=== PATIENT | male | born 1965 | race Caucasian/White ===

== ENCOUNTER → 2020-04-17 | Outpatient (CLI) | payer OTHER ==
[~2020-04-17] MED LIST: ALLOPURINOL 30300 M1 PO; AMBIEN CR12.5 MG PO; DESYREL150 MG PO; LORAZEPAM 0.50.5 MG PO; OLMESARTAN MEDO40 MG PO; TESTOSTERO200 MG/1 M IM
== END ==
LOC: LAB 12:32
PROVIDERS: ATTEND Nurse Practitioner
DX: U07.1 COVID-19 (principal)

== ENCOUNTER 2020-04-21 13:37 | Inpatient (IN) | payer OTHER ==
[~2020-04-21] VITALS: Ht 200.7 cm; Wt 178.6 kg
[2020-04-21 13:40] VITALS: BP 136/79
[2020-04-21] MEDS ORDERED: ALLOPURINOL 30300 M1 PO (15:17)
[2020-04-21] MEDS ORDERED: LORAZEPAM 0.50.5 MG PO (15:18)
[2020-04-21] MEDS ORDERED: OLMESARTAN MEDO40 MG PO (15:18)
[2020-04-21] MEDS ORDERED: TESTOSTERO200 MG/1 M IM (15:18)
[2020-04-21 15:36] LABS: ABSOLUTE NEUTROPHILS 13.1 thou/uL (1.4-8.2); BASOPHILS 0.2 % (0.0-2.0); HEMATOCRIT 37.1 % (42.0-52.0); HEMOGLOBIN 12.9 gm/dL (14.0-18.0); LYMPHOCYTES 6.4 % (24.0-44.0); MCH 30.5 pg (26.0-34.0); MCHC 34.7 g/dL (28.0-37.0); MCV 87.9 fL (80.0-100.0); MONOCYTES 6.1 % (1.0-8.0); PLATELET COUNT 196 thou/uL (150-400); POLYS 87.3 % (36.0-66.0); RBC 4.22 mil/uL (4.50-6.00)
[2020-04-21 15:50] LABS: CALCIUM 8.7 mg/dL (8.5-10.1); CREATININE 1.3 mg/dL (0.7-1.3)
[2020-04-21 15:53] LABS: ALBUMIN 3.3 g/dL (3.4-5.0); TOTAL BILIRUBIN 0.6 mg/dL (0.2-1.0); TOTAL PROTEIN 7.3 g/dL (6.4-8.2)
[2020-04-21 18:15] VITALS: BP 132/89
[2020-04-21 18:31] VITALS: BP 139/88
[2020-04-21 18:46] VITALS: BP 153/85
[2020-04-21] MEDS ORDERED: AMBIEN CR12.5 MG PO (22:47)
[2020-04-21] MEDS ORDERED: DESYREL150 MG PO (22:51)
[2020-04-21 23:31] VITALS: BP 173/76
[2020-04-22 03:32] VITALS: BP 175/79
[2020-04-22 04:06] LABS: GLYCOHEMOGLOBIN (HGB A1C) 9.4 % (4.8-5.6)
--- NOTE | 2020-04-22 05:04 | NUR ---
PT ARRIVED VIA WHEELCHAIR. PLACED IN ROOM 356. ADMISSION ASSESSMENTS COMPLETED. PT REPORTS SOA WITH ACTIVITY AND NONPRODUCTIVE COUGH. PT ON O2 AT 4L PER NC. LUNGS DIMINISHED THROUGHOUT. THIS AM PT REPORTING CREAMY WHITE SPUTUM. STATES THAT HE HAS BEEN ABLE TO AMBULATE TO THE TOILET BUT FEES OUT OF BREATH BY THE TIME HE RETURNS TO THE BED AND RESUMES THE OXYGEN. NOTED O2 SAT OF 88-89% ON ROOM, 95% ON 4L.
[2020-04-22 06:55] VITALS: BP 148/90
[2020-04-22 07:58] VITALS: BP 131/83
[2020-04-22] MEDS ORDERED: FREESTYLE LIBR1 EAC2 MISCELL (09:17)
[2020-04-22 12:24] VITALS: BP 147/77
[2020-04-22 16:30] VITALS: BP 140/84
--- NOTE | 2020-04-22 18:19 | NUR ---
RN ASSUMED PT'S CARE AT 0700AM, PT IS A&OX3, PT IS CONTINUING O2 3L/MIN/NC TO KEEP O2SAT >93%, PT HAS SOB WITH ACTIVITIES, PT IS CONTINUING IV ABX , PT GETS UP TO BATHROOM BY HIMSELF, PT DENIES PAIN AT THIS TIME.
[2020-04-22 20:05] VITALS: BP 148/75
[2020-04-23 04:11] VITALS: BP 146/85
[2020-04-23 05:52] LABS: CALCIUM 8.7 mg/dL (8.5-10.1); POTASSIUM 4.1 mmol/L (3.5-5.1)
[2020-04-23 05:56] LABS: HEMATOCRIT 36.5 % (42.0-52.0); HEMOGLOBIN 12.5 gm/dL (14.0-18.0); MCH 30.2 pg (26.0-34.0); MCHC 34.2 g/dL (28.0-37.0); MCV 88.1 fL (80.0-100.0); RBC 4.14 mil/uL (4.50-6.00); WBC 11.6 thou/uL (4.0-11.0)
[2020-04-23 05:57] LABS: ALBUMIN 3.2 g/dL (3.4-5.0); CREATININE 1.1 mg/dL (0.7-1.3); DIRECT BILIRUBIN 0.2 mg/dL (<0.1-0.2); TOTAL BILIRUBIN 0.4 mg/dL (0.2-1.0); TOTAL PROTEIN 6.7 g/dL (6.4-8.2)
[2020-04-23 08:25] VITALS: BP 137/88
--- NOTE | 2020-04-23 10:32 | HC ---
[facility] [place] [address] CONSULTATION Name: MYRIAM REIS [place] Room #: 356-[facility] IN M.R.#: [id number] Admission: 04/21/20 Attend Phys: Alba Ramirez Discharge: Date of : 65 Report #: [id number] THIS REPORT FOR: cc: Tristan Monte James A. DO Barry, Joseph W. MD ~ DATE OF SERVICE: 04/22/2020 INFECTIOUS DISEASE CONSULTATION ATTENDING PHYSICIAN: Dr. lAba Ramirez REASON FOR EVALUATION: COVID complicated by pneumonitis and hypoxemia. HISTORY OF PRESENT ILLNESS: Chart reviewed, patient examined. This is a 54-year-old with known obstructive sleep apnea, who became ill over the last few days. He was confirmed to have COVID positivity middle part of last week, had increasing dyspnea, particularly with activity. He has associated cough and denies systemic illness in terms of fevers or chills. Appetite has been satisfactory. Chest x-ray was done in the Emergency Room, which showed bilateral perihilar infiltrates. CBC showed a white count elevated at 15. Lactic acid is 1.9. Blood cultures are sterile thus far. Due to concern about borderline saturations, he was placed on supplemental oxygen, now requiring 4 liters per nasal cannula. In addition to this was likely new diagnosis of diabetes mellitus. ALLERGIES: None known. MEDICATIONS: Include metformin, glyburide, ceftriaxone, dexamethasone, olmesartan, trazodone, zolpidem, enoxaparin, insulin. PAST MEDICAL HISTORY: As noted above, sleep apnea, hypertension, likely new diagnosis of diabetes mellitus. SOCIAL HISTORY: Nonsmoker, no ethanol, no illicit drug use. FAMILY HISTORY: Noncontributory. REVIEW OF SYSTEMS: Otherwise, unremarkable 10-point review of systems. PHYSICAL EXAMINATION: GENERAL: He is obese. He is alert, cooperative, in [id number] distress secondary to breathing difficulties. He is lucid. VITAL SIGNS: Temperature 97.2, pulse 72, respirations 16, blood pressure [facility] [address] [place] [address] CONSULTATION Name: MYRIAM REIS Room #: [address] [place] [address] [place] M.R.#: [id number] Admission: 04/21/20 Attend Phys: Alba Ramirez Discharge: Date of : 65 Report #: [id number] 131/83. SKIN: Warm, dry, no rashes. HEENT: He has got a thick neck. Nasal cannula in place. NECK: Supple. LUNGS: Diminished breath sounds with crackles at the bases. HEART: Distant, regular. ABDOMEN: Obese, soft, nontender. EXTREMITIES: No cyanosis. GENITOURINARY AND RECTAL: Deferred. LABORATORY DATA: Blood cultures negative thus far. Hemoglobin A1c 9.4. TSH of 1.009. Lactic acid 1.9. Electrolytes: Sodium 135, potassium 4.0, chloride 97, bicarbonate 26, anion gap of 12, BUN and creatinine 26 and 1.3, glucose of 329, albumin 3.3, total protein 7.3, estimated GFR 58. CBC: White count of 15.0, H and H 12.9 and 37.1, platelets of 196. Chest x-ray as noted above. ASSESSMENT: Coronavirus infection, complicated by pneumonitis and respiratory failure. We will initiate therapy with remdesivir as well as the corticosteroids. He is on some empiric antibacterials as well. We will add vitamins. He remains somewhat tenuous, certainly needs diabetes education and management will be difficult to control until he is over his acute illness. We will monitor expectantly. <ELECTRONICALLY SIGNED> By: Drew Street MD 04/23/20 [id number] MD /nt
[2020-04-23 15:17] VITALS: BP 148/92
--- NOTE | 2020-04-23 18:02 | NUR ---
RN SUMMED PT'S CARE AT 0700AM, PT IS CONTINUING IV ABX, PT'S VS ARE STABLE, PT 'S O2 IS ON AND OFF , PT GETS UP TO CHAIR AND BATH ROOM, PT DENIES SOB AND PAIN.
[2020-04-23 19:45] VITALS: BP 155/91
[2020-04-24 02:30] VITALS: BP 152/89
[2020-04-24 06:30] LABS: ALBUMIN 3.1 g/dL (3.4-5.0); CREATININE 0.8 mg/dL (0.7-1.3); DIRECT BILIRUBIN 0.1 mg/dL (<0.1-0.2); TOTAL BILIRUBIN 0.3 mg/dL (0.2-1.0); TOTAL PROTEIN 6.7 g/dL (6.4-8.2)
--- NOTE | 2020-04-24 07:40 | NUR ---
PT UP AD ROXANE AND USES CALL LIGHT WHEN NEEDING HELP. VSS OVERNIGHT. TELE SHOWS SR/SB WITH A BBB. NO FEVER. PT ON CPAP AT HS.
[2020-04-24] MEDS ORDERED: CLARITIN10 M2 PO (08:00)
[2020-04-24 15:45] VITALS: BP 168/87
--- NOTE | 2020-04-24 16:10 | NUR ---
INITIAL ASSESSMENT: SW reviewed chart and spoke with nursing and attending physician. Pt was admitted from home due to pneumonia. Pt placed in Enhanced Isolation due to COVID-19. Pt is afebrile and not requiring O2. Pt is on IV abx and completing course of Remdesivir. SW spoke with pt via phone. Introduced role of SW. Pt is alert/orientated x 4. Pt reports he lives at home with family. Prior to admission, pt was independent with ADLs. Pt does not use any DME for ambulation. Pt has a cpap machine. No hx of services or post-acute placement. Pt's PCP is Dr. Monte. Pt's plan is to discharge home when medically stable. Pt's family to provide transportation home. SW is following to assist as needed with discharge planning.
[2020-04-24 20:18] VITALS: BP 154/85
[2020-04-25 05:44] LABS: ALBUMIN 3.3 g/dL (3.4-5.0); CREATININE 0.9 mg/dL (0.7-1.3); DIRECT BILIRUBIN 0.1 mg/dL (<0.1-0.2); TOTAL BILIRUBIN 0.5 mg/dL (0.2-1.0); TOTAL PROTEIN 6.5 g/dL (6.4-8.2)
[2020-04-25 06:05] VITALS: BP 139/89
--- NOTE | 2020-04-25 07:51 | NUR ---
ASSUMED CARE AT 1900, ASSESSMENT COMPLETED. PT DENIED PAIN OR NAUSEA, REPORTS MILD SOB W/EXERTION, ALSO C/O NO SENSE OF TASTE. HAS BEEN SR ON TELE. LUNGS COARSE BUT MOVING AIR WELL. GAVE ATIVAN AND AMBIEN AT HS, PT DECLINED TAKING TRAZADONE. NO OTHER CONCERNS, SHIFT REPORT GIVEN 0700.
[2020-04-25 07:52] VITALS: BP 139/80
[2020-04-25] MEDS ORDERED: CEFDINIR300 MG PO (09:02)
[2020-04-25] MEDS ORDERED: PREDNISONE 20 M20 M1 PO (09:03)
[2020-04-25] MEDS ORDERED: GLUCOPHAGE1000 MG PO (09:03)
[2020-04-25] MEDS ORDERED: GLYBURIDE 5 MG T5 M1 PO (09:04)
[2020-04-25 11:10] VITALS: BP 139/80
[2020-04-25 12:41] VITALS: BP 139/80
--- NOTE | 2020-04-25 15:39 | NUR ---
DISCHARGE NOTE: SW reviewed chart and spoke with nursing. Pt remains in Enhanced Isolation due to COVID-19. Pt is medically stable for discharge home per attending. Discharge orders completed. Pt's family provided transportation home. No SW needs identified, but is available to assist should needs arise.
== END 2020-04-25 13:26 | disposition home or self-care (01) | DRG 871 ==
LOC: ER 13:37 → EROBS 18:13 → 3W 18:13
PROVIDERS: Emergency Medicine; Specialist; ADMIT Hospitalist; ATTEND Hospitalist
DX: A41.89 Other specified sepsis (principal); U07.1 COVID-19; J12.89 Other viral pneumonia; J96.90 Respiratory failure, unspecified, unspecified whether with hypoxia or hypercapnia; Z68.41 Body mass index [BMI] 40.0-44.9, adult; E11.65 Type 2 diabetes mellitus with hyperglycemia; E66.9 Obesity, unspecified; G47.33 Obstructive sleep apnea (adult) (pediatric); I10 Essential (primary) hypertension; Z79.899 Other long term (current) drug therapy; Z79.84 Long term (current) use of oral hypoglycemic drugs
CPT/HCPCS: 10879